=== PATIENT | male | born 1955 | race Caucasian/White ===

== ENCOUNTER → 2016-10-09 | Outpatient (CLI) | payer BC, OTHER ==
--- NOTE | 2016-10-10 06:13 | REP ---
Clinical: Pain and disability. Technique: AP, lateral, cone down views of the lumbosacral spine. Comparison: 01/17/2011. Findings: Alignment and lordosis maintained without evidence for acute fracture / compression injury or subluxation. Moderate to advanced multilevel degenerative disc osteophyte complexes are noted throughout the visualized lower thoracic and lumbosacral spine. Bridging osteophytes are identified at the T10 through T12 levels. Endplate sclerosis with spurring and disc space narrowing as well as hypertrophic facet changes noted throughout the lumbar spine. Impression: Moderate to advanced multilevel degenerative disc osteophyte complexes noted throughout the lower thoracic and lumbosacral spine progressive since prior examination. No acute fracture / compression injury or subluxation. Signed by Lew Cordoba MD 10/10/2016 06:04 A
== END ==
LOC: M ADAMS 14:30
PROVIDERS: ATTEND Family Medicine
DX: M79.652 Pain in left thigh (principal)

== ENCOUNTER → 2017-02-02 | Outpatient (REF) | payer BC, OTHER | LOC: M LAB REF 12:19 | PROVIDERS: ATTEND Physician Assistant | DX: N45.1 Epididymitis (principal) ==

== ENCOUNTER → 2017-02-04 | Outpatient (CLI) | payer BC, OTHER ==
--- NOTE | 2017-02-05 05:56 | REP ---
Clinical: Left-sided scrotal and testicular pain. Technique: Live scale and color Doppler evaluation using linear and curved array transducer with color Doppler evaluation. Findings: With the exception of cystic changes to the epididymi and mediastinum testis bilaterally including cysts measuring up to 7 mm in the left mediastinum testis and epididymal head cysts measuring up to 5 mm bilaterally, the testicles and epididymi are normal in contour, size, echogenicity and vascularity. There is no evidence for intratesticular/epididymal mass lesion, infectious/inflammatory process, or air torsion. No hydroceles are appreciated. Left-sided varicoceles and suspected spermatoceles measure up to 3.4 mm diameter. Right testicle measures 5.6 x 2.7 x 3.6 cm cm. Left testicle measures 5.5 x 2.3 x 3.0 cm cm. Impression: 1. Age-related cystic changes to the epididymi and mediastinum testes. 2. Suspected left-sided varicoceles and spermatoceles measuring up to approximately 3.5 mm diameter. 3. No evidence for orchitis or epididymitis. No hydrocele. Signed by Lew Cordoba MD 02/05/2017 05:47 A
== END ==
LOC: M RAD 10:13
PROVIDERS: ATTEND Physician Assistant
DX: N45.1 Epididymitis (principal)

== ENCOUNTER → 2017-06-16 | Outpatient (REF) | payer OTHER | LOC: M LAB REF 16:47 | PROVIDERS: ATTEND Nurse Practitioner Women's Health | DX: N50.819 Testicular pain, unspecified (principal) ==

== ENCOUNTER → 2017-06-17 | Outpatient (REF) | payer OTHER | LOC: M SMT 12:12 | PROVIDERS: ATTEND Nurse Practitioner Women's Health | DX: Z12.5 Encounter for screening for malignant neoplasm of prostate (principal) ==

== ENCOUNTER → 2017-09-25 | Outpatient (REF) | payer OTHER ==
[2017-09-25 13:39] LABS: BASO # 0.1 10^3/uL (0.0-0.2); BASO % 0.7 % (0.0-1.0); EOS # 0.2 10^3/uL (0.0-0.50); HEMATOCRIT 48.3 % (42.0-52.0); IMMATURE GRANULOCYTE % 0.4 % (0-0); LYMPH # 2.6 10^3/uL (1.5-4.5); LYMPH % 34.5 % (24.0-44.0); MEAN CORPUSCULAR HEMOGLOBIN 33.3 pg (27.0-33.0); MEAN CORPUSCULAR HGB CONC 35.2 g/dl (32.0-36.5); MEAN CORPUSCULAR VOLUME 94.7 fl (80.0-96.0); MONO # 0.6 10^3/uL (0.0-0.8); MONO % 7.5 % (0.0-5.0); NEUTROPHILS # 4.1 10^3/uL (1.8-7.7); NEUTROPHILS % 54.9 % (36.0-66.0); PLATELET COUNT, AUTOMATED 217 10^3/uL (150-450); RED CELL DISTRIBUTION WIDTH 11.9 % (11.5-14.5); WHITE BLOOD COUNT 7.4 10^3/uL (4.0-10.0)
[2017-09-25 14:00] LABS: ALBUMIN 4.2 GM/DL (3.2-5.2); ALBUMIN/GLOBULIN RATIO 1.35 (1.00-1.93); ALKALINE PHOSPHATASE 56 U/L (45-117); ALT/SGPT 64 U/L (12-78); ANION GAP 4 MEQ/L (8-16); AST/SGOT 31 U/L (7-37); BILIRUBIN,TOTAL 0.8 MG/DL (0.2-1.0); BLOOD UREA NITROGEN 16 MG/DL (7-18); CALCIUM LEVEL 9.1 MG/DL (8.8-10.2); CARBON DIOXIDE LEVEL 32 MEQ/L (21-32); CHLORIDE LEVEL 103 MEQ/L (98-107); CHOLESTEROL LEVEL 223 MG/DL (<200); CHOLESTEROL RISK RATIO 5.068 (<5); FREE T4 0.91 NG/DL (0.76-1.46); GLOMERULAR FILTRATION RATE > 60.0 (>49); GLUCOSE, FASTING 96 MG/DL (70-100); HDL CHOLESTEROL 44 MG/DL (>40); LDL CHOLESTEROL 135.8 MG/DL (<100); NON-HDL-C 179 MG/DL; POTASSIUM SERUM 4.9 MEQ/L (3.5-5.1); SODIUM LEVEL 139 MEQ/L (136-145); TOTAL PROTEIN 7.3 GM/DL (6.4-8.2); TRIGLYCERIDES LEVEL 216 MG/DL (<150)
== END ==
LOC: M SFHCADAM 12:32
DX: R53.82 Chronic fatigue, unspecified (principal); Z91.89 Other specified personal risk factors, not elsewhere classified

== ENCOUNTER → 2018-06-18 | Outpatient (REF) | payer OTHER ==
[2018-06-18 11:08] LABS: BASO % 0.6 % (0.0-1.0); EOS # 0.1 10^3/uL (0.0-0.50); EOS % 2.2 % (0.0-3.0); HEMATOCRIT 47.3 % (42.0-52.0); HEMOGLOBIN 16.1 g/dl (13.5-17.5); IMMATURE GRANULOCYTE % 0.6 % (0-3.0); LYMPH # 2.1 10^3/uL (1.5-4.5); LYMPH % 33.8 % (24.0-44.0); MEAN CORPUSCULAR HEMOGLOBIN 32.9 pg (27.0-33.0); MEAN CORPUSCULAR VOLUME 96.7 fl (80.0-96.0); MONO # 0.5 10^3/uL (0.0-0.8); MONO % 8.2 % (0.0-5.0); NEUTROPHILS # 3.5 10^3/uL (1.8-7.7); NEUTROPHILS % 54.6 % (36.0-66.0); PLATELET COUNT, AUTOMATED 184 10^3/uL (150-450); RED BLOOD COUNT 4.89 10^6/uL (4.30-6.10); RED CELL DISTRIBUTION WIDTH 12.1 % (11.5-14.5); WHITE BLOOD COUNT 6.3 10^3/uL (4.0-10.0)
[2018-06-18 11:25] LABS: ALBUMIN 3.9 GM/DL (3.2-5.2); ALKALINE PHOSPHATASE 59 U/L (45-117); ALT/SGPT 53 U/L (12-78); ANION GAP 7 MEQ/L (8-16); AST/SGOT 29 U/L (7-37); BILIRUBIN,TOTAL 0.8 MG/DL (0.2-1.0); BLOOD UREA NITROGEN 18 MG/DL (7-18); CALCIUM LEVEL 8.5 MG/DL (8.8-10.2); CARBON DIOXIDE LEVEL 29 MEQ/L (21-32); CHLORIDE LEVEL 103 MEQ/L (98-107); CHOLESTEROL LEVEL 199 MG/DL (<200); CHOLESTEROL RISK RATIO 4.853 (<5); CREATININE FOR GFR 1.01 MG/DL (0.70-1.30); FREE T4 0.95 NG/DL (0.76-1.46); GLOMERULAR FILTRATION RATE > 60.0 (>49); GLUCOSE, FASTING 102 MG/DL (70-100); HDL CHOLESTEROL 41 MG/DL (>40); LDL CHOLESTEROL 127 MG/DL (<100); NON-HDL-C 158 MG/DL; POTASSIUM SERUM 4.5 MEQ/L (3.5-5.1); SODIUM LEVEL 139 MEQ/L (136-145); TOTAL PROTEIN 6.9 GM/DL (6.4-8.2); TRIGLYCERIDES LEVEL 156 MG/DL (<150)
== END ==
LOC: M SFHCADAM 08:19
DX: R53.82 Chronic fatigue, unspecified (principal); E78.2 Mixed hyperlipidemia
CPT/HCPCS: 84443

== ENCOUNTER → 2018-10-01 | Outpatient (CLI) | payer BC, OTHER ==
--- NOTE | 2018-10-01 10:36 | REP ---
Clinical: right-sided pain on exertion. Technique: Real time couch scale and color Doppler evaluation using linear high frequency transducer. Comparison: 02/04/2017. Findings: The bilateral testicles are relatively normal in contour, size, echogenicity, and vascularity without evidence for intratesticular mass lesion, infectious/inflammatory process, or torsion. Incidental left intratesticular cyst measures 5 mm and appears simple. Bilateral epididymal head cysts are also identified measuring up to 5 mm on the right side and 3 mm on the left side. Small bilateral hydroceles are identified and nonspecific. In comparison with prior examination the above findings are essentially stable. No right-sided varicoceles are identified. Prominent left-sided vessels measure up to 3.3 mm on Valsalva and significantly less prominent than prior exam. A heterogeneous echogenic mass is identified in the right tejas scrotum superior to the testicle measuring 5.5 x 4.6 x 3.5 cm with a very minimal vasculature noted. This may represent mass versus loculated herniated fat. Impression: 1. Testicles and epididymi demonstrate relatively stable findings including epididymal head cysts and a left intratesticular cyst. Small hydroceles are nonspecific and likely incidental. 2. Previously identified left-sided varicoceles are significantly less prominent than prior examination with vessels measuring up to 3.3 mm on Valsalva. 3. There is a somewhat heterogeneous loculated hyperechoic area superior to the right testicle as described above which may represent loculated previously herniated fat and less likely true mass lesion. Correlation with physical examination and follow-up examination are warranted. Electronically Signed by Lew Cordoba MD 10/01/2018 10:27 A
== END ==
LOC: M SMT 08:23
PROVIDERS: ATTEND Nurse Practitioner Family
DX: N50.819 Testicular pain, unspecified (principal)

== ENCOUNTER → 2018-10-01 | Outpatient (REF) | payer OTHER ==
[2018-10-01 13:19] LABS: APPEARANCE, URINE CLEAR (CLEAR); BACTERIA, URINE AUTO NEGATIVE (NEGATIVE); BILIRUBIN, URINE AUTO NEGATIVE (NEGATIVE); BLOOD, URINE BLOOD NEGATIVE (NEGATIVE); COLOR, URINE YELLOW (YELLOW); GLUCOSE, URINE (UA) AUTO NEGATIVE (NEGATIVE); KETONE, URINE AUTO NEGATIVE (NEGATIVE); LEUKOCYTE ESTERASE, URINE AUTO NEGATIVE (NEGATIVE); MUCUS, URINE SMALL (NEGATIVE); NITRITE, URINE AUTO NEGATIVE (NEGATIVE); PROTEIN, URINE AUTO NEGATIVE (NEGATIVE); RBC, URINE AUTO 0 /HPF (0-3); SPECIFIC GRAVITY URINE AUTO 1.018 (1.002-1.035); SQUAMOUS EPITHELIAL CELL UR AU 0 /HPF (0-6); UROBILINOGEN, URINE AUTO 0.2 mg/dL (0.0-2.0); WBC, URINE AUTO 0 /HPF (0-3)
== END ==
LOC: M SMT 13:04
PROVIDERS: ATTEND Nurse Practitioner Family
DX: N50.819 Testicular pain, unspecified (principal)

== ENCOUNTER → 2018-10-07 | Outpatient (CLI) | payer BC, OTHER | LOC: M SMT 09:08 | PROVIDERS: ATTEND Nurse Practitioner Family | DX: Z12.5 Encounter for screening for malignant neoplasm of prostate (principal) | CPT/HCPCS: 36415; G0103 ==

== ENCOUNTER → 2018-10-15 | Outpatient (CLI) | payer BC, OTHER ==
[~2018-10-15] MED LIST: GASTROGRAFIN SOLUTION 30ML (Q9963) As Ordered ONE
--- NOTE | 2018-10-15 15:31 | REP ---
CT of the abdomen pelvis without IV contrast but with bowel contrast: Comparisons are the CT of the pelvis dated 01/02 2009 and scrotal ultrasound dated 10/01/2018. There is a fat-containing right inguinal hernia extending inferiorly to the scrotum maximally measuring 6.6 cm transverse diameter. This measured 3.[address]. There is no bowel within the hernia. The left inguinal canal is unremarkable. The visualized lung mulligan are unremarkable. The unenhanced hepatic parenchyma, gallbladder, pancreas, spleen, adrenals, abdominal aorta, bowel and mesentery are unremarkable. Pelvis: There is a tiny appendicolith. The appendix is otherwise unremarkable. The terminal ileum is unremarkable. There is sigmoid diverticulosis without diverticulitis. No adenopathy or ascites. The bladder is unremarkable. Impression: There is a fat-containing right inguinal hernia extending to the scroll measuring 6.6 cm in diameter. This has increased in size from the prior CT study. It is seen superiorly in the right tejas scrotum on the can scrotal ultrasound. There is no bowel within the hernia sac. Appendicolith. Appendix is otherwise unremarkable. Electronically Signed by Carlos Gavin MD 10/15/2018 03:21 P
== END ==
LOC: M RAD 12:45
PROVIDERS: ATTEND Nurse Practitioner Family
DX: K40.90 Unilateral inguinal hernia, without obstruction or gangrene, not specified as recurrent (principal)
CPT/HCPCS: 74177; Q9963

== ENCOUNTER 2018-12-06 09:39 | Day surgery (SDC) | payer BC, OTHER ==
[~2018-12-06] VITALS: Ht 180.3 cm; Wt 113.4 kg
[~2018-12-06 09:39] MED LIST changes: -GASTROGRAFIN SOLUTION 30ML (Q9963) As Ordered ONE; +LR 1,000 ML IV ONE; +MAGN250T7 PO; +REST0.05 OU; +TOLT2CAP4 PO
[2018-12-06] MEDS ORDERED: LIDOCAINE 2% INJ 100 MG/5 ML SDV (FOR ANES.) As Ordered ONE (10:17)
[2018-12-06] MEDS ORDERED: ONDANSETRON 4MG/2ML VIAL (J2405) As Ordered ONE (10:17)
[2018-12-06] MEDS ORDERED: dexameTHASONE 4 MG/ML 1ML VIAL (J1100) As Ordered ONE (10:17)
[2018-12-06] MEDS ORDERED: PROPOFOL 200 MG/20 ML VIAL As Ordered ONE (10:17)
[2018-12-06] MEDS ORDERED: ROCURONIUM BROMIDE 50 MG/5 ML VIAL As Ordered ONE ×2 (10:17→13:17)
[2018-12-06] MEDS ORDERED: MIDAZOLAM INJ 2 MG/2 ML VIAL (J2250) As Ordered ONE (10:18)
[2018-12-06] MEDS ORDERED: fentaNYL 250 MCG/5 ML INJECTION (J3010) As Ordered ONE (10:18)
[2018-12-06] MEDS ORDERED: LIDOCAINE 1% SDV INJ 30 ML VIAL As Ordered ONE (12:27)
[2018-12-06] MEDS ORDERED: BUPIVACAINE HCL 0.25% 30 ML VIAL As Ordered ONE (12:27)
[2018-12-06] MEDS ORDERED: GLYCOPYRROLATE INJ 0.2 MG/ML 2 ML VIAL As Ordered ONE (13:04)
[2018-12-06] MEDS ORDERED: SUGAMMADEX SODIUM 500 MG/5 ML VIAL (BRIDION) As Ordered ONE (13:12)
[2018-12-06] MEDS ORDERED: KETOROLAC 60 MG/2 ML VIAL (J1885) As Ordered ONE (13:12)
[2018-12-06] MEDS ORDERED: PERCOCET 5MG/325MG TAB PO PRN (15:15)
[2018-12-06] MEDS ORDERED: LR 1,000 ML IV SCH (15:15)
[2018-12-06] MEDS ORDERED: METOCLOPRAMIDE INJ 10MG/2ML VIAL (J2765) IV PRN (15:15)
[2018-12-06] MEDS ORDERED: KETOROLAC 30 MG/ML VIAL (J1885) IV PRN (15:15)
[2018-12-06] MEDS ORDERED: ONDANSETRON 4MG/2ML VIAL (J2405) IV PRN ×2 (15:15)
[2018-12-06] MEDS ORDERED: fentaNYL 100 MCG/2 ML INJECTION (J3010) IV PRN (15:15)
[2018-12-06] MEDS ORDERED: NORCO, ANEXSIA 5/325MG TABLET (HYDROcodone/ACETAMINOPHEN) PO PRN ×2 (15:15)
[2018-12-06] MEDS ORDERED: MEPERIDINE INJ 25 MG/ML VIAL (J2175) IV PRN (15:15)
--- NOTE | 2018-12-06 15:58 | ROOPDOC ---
[facility] Report Of Operation Report of Operation DATE OF PROCEDURE: 12/06/18 PREPROCEDURE DIAGNOSES: Right Inguinal Hernia. POSTPROCEDURE DIAGNOSES: Right (large) indirect inguinal hernia, small direct inguinal hernia. PROCEDURE: Robotic Assisted Laparoscopic Right Ingunal Hernia Repair (AGUSTIN) progrip mesh. SURGEON: Thomas Haji MD GUIDE SETTER: Annabelle Cabral NP ANESTHESIA: General Anesthesia. ESTIMATED BLOOD LOSS: Approximately 20 mL. COMPLICATIONS: none. REMARKS: bulky cord lipoma and preperitoneal tissue including that around the medial umbilical ligament protruding through the internal inguinal ring accompanying the hernia, large redundant hernia sac PROCEDURE NOTE: . DESCRIPTION OF PROCEDURE: Patient received 2 g of Ancef IV preoperatively for wound prophylaxis. Patient was brought to the operating room, placed supine on the operating table. Compression boots placed in both lower extremities for DVT prophylaxis. After adequate general anesthesia started, he was placed on a lithotomy position. A hong catheter placed without difficulty. His abdomen and groin/pelvic area then prepped and draped in the usual sterile fashion. After a surgical timeout we began our surgery. Entry to the abdomen done through a small incision above the umbilical skin cleft. A Veress needle is inserted on a controlled fashion. CO2 insufflation started to pressure 15 mmHg. Using the same incision a 5 mm Visiport was then placed under direct vision of laparoscope. The insertion site was inspected for injury and none was found. Patient was then positioned on a Trendelenburg position with the symptomatic (left) side tilted upwards for adequate view of the hernia defect. 2 working ports placed to the right and left of the umbilicus along the same line. The da Rosalee robot to our was then positioned in between the patient's legs and the trochars docked onto the robot. I then unscrubbed and took control of the camera and the laparoscopic instruments at the surgeon's console. A Cadiere forceps with bipolar cautery on arm 2 and A ady-cut laparoscopic scissor with unipolar cautery in arm 1 was used. Operative Findings: No peritoneal defect was found on the right side. On the left side, there is a peritoneal defect going into the internal ring at the indirect hernia space which initially was containing a piece of omentum which easily reduced on positioning the patient at trendelenburg position. The peritoneum was opened up about 3 cm above the superior edge of the fascial defect of the inguinal hernia starting at the medial umbilical ligament going in an arc-like fashion laterally towards the level of the anterior superior iliac spine. This was then dissected mostly bluntly away from the abdominal wall. On approaching the inguinal hernia defect the hernia sac was pulled back into the preperitoneal space and carefully dissected off the testicular vessels and vas deferens. He has a large and redundant inguinal hernia sac which was fully reduced back into the abdomen. Both these structures were promptly identified and from the hernia sac. A small cord lipoma was found and dissected free from the rest of the structures. After freeing up the hernia sac we continued dissecting it off inferiorly to from the vas deferens and testicular vessels. The preperitoneal space was dissected medially to expose the pubic tubercle up towards the symphysis pubis. The remaining areolar fibers were bluntly dissected away from the abdominal wall to create space for the mesh. After fully dissecting the preperitoneal space, we checked for adequate hemostasis. I chose a Parietex Pro Animal Assistant self fixating mesh. I had my lens assistant trim the lateral edges of the mesh to approximate the patient's body habitus. This was folded with the center of the mesh marked for positioning. This was then delivered intra-abdominally through one of the trochars. A controlled fashion this was positioned into the preperitoneal space with the medial side towards the pubic tubercle and the previously marked center of the mesh abutting the inferior epigastric vessels. The mesh was then carefully infolded and positioned in place with adequate overlap around the internal ring to cover the hernia defect. The mesh has adequate coverage for the direct hernia spaces as well. This was carefully pressed onto the abdominal wall and made sure that it was flattened up. After careful placement of the mesh, the peritoneal opening was then closed with a running suture of 2-0V LOC suture. As the hernia sac was long and redundant I incorporated the hernia sac into the closure of the peritoneum. I then surveyed the abdomen and pelvis for any signs of injury. Once satisfied I scrubbed back in. The instruments were removed. The abdomen was deflated. All ports were removed. The skin incisions were closed with 4-0 Monocryl in subcuticular fashion. The incisions were covered with Dermabond. The port sites were again infiltrated with local anesthesia. An ilioinguinal nerve block was also performed. Patient was promptly awakened, extubated and brought to the recovery room stable Count of sponges and instruments were verified correct. THOMAS HAJI MD Dec 06, 2018 15:58
--- NOTE | 2018-12-06 16:43 | ECGEPIP ---
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 LA conduction disturbance? First-degree AV block (measured SC interval is incorrect) Early transition/slightly prominent R waves in V3. No prior tracing for comparison. Electronically Signed On 12-06-2018 16:42:53 EDT by Gregor Felder
[2018-12-06 17:46] VITALS: BP 136/80
== END 2018-12-06 17:55 | disposition home or self-care (01) ==
LOC: M SDC 09:39
PROVIDERS: ATTEND Surgery
DX: K40.90 Unilateral inguinal hernia, without obstruction or gangrene, not specified as recurrent (principal); G47.30 Sleep apnea, unspecified; Z79.899 Other long term (current) drug therapy
CPT/HCPCS: 49650; 88304; 93005; C1781; J0690; J1100; J1885; J2250; J2405; J3010

== ENCOUNTER → 2018-12-22 | Outpatient (CLI) | payer BC, OTHER ==
[~2018-12-22] MED LIST changes: -LR 1,000 ML IV ONE
--- NOTE | 2018-12-22 12:32 | REP ---
BILATERAL HIPS: AP and frogleg views of the bilateral hips are performed. There is no acute fracture or dislocation. The is mild joint space narrowing and subchondral sclerosis bilaterally. Two tiny calcific densities at the superolateral margin of the right acetabulum may represent cartilaginous calcifications or accessory ossicles. There is no intrinsic osseous pathology seen. There is mild bilateral acetabular spurring. IMPRESSION: Mild bilateral degenerative changes. Electronically Signed by Carlos Live MD 12/22/2018 04:34 P
== END ==
LOC: M ADAMS 09:01
PROVIDERS: ATTEND Family Medicine
DX: M25.852 Other specified joint disorders, left hip (principal)

== ENCOUNTER → 2019-07-20 | Outpatient (REF) | payer OTHER ==
[2019-07-20 13:02] LABS: CHOLESTEROL RISK RATIO 4.804 (<5)
== END ==
LOC: M SFHCADAM 08:05
PROVIDERS: ATTEND Family Medicine
DX: Z91.89 Other specified personal risk factors, not elsewhere classified (principal)

== ENCOUNTER → 2019-07-22 | Outpatient (CLI) | payer BC, OTHER ==
--- NOTE | 2019-07-22 12:21 | REP ---
Chest x-ray: Two views. History: Chest pressure . Comparison study: January 17, 2011 . Findings: The lungs are well inflated and free of infiltrate. The pleural angles are sharp. The heart size is normal. Pulmonary vasculature is not increased. No significant bony abnormality is seen. There are degenerative disc changes in the thoracic spine. Impression: Negative chest x-ray. Electronically Signed by Jeronimo Latham MD 07/22/2019 12:13 P
== END ==
LOC: M ADAMS 09:45
PROVIDERS: ATTEND Family Medicine
DX: R07.89 Other chest pain (principal)

== ENCOUNTER → 2019-10-17 | Outpatient (REF) | LOC: M LAB 13:55 | PROVIDERS: ATTEND Nurse Practitioner Adult Health | DX: Z02.1 Encounter for pre-employment examination (principal) ==

== ENCOUNTER → 2020-09-19 | Outpatient (REF) | payer OTHER ==
[2020-09-19 13:59] LABS: CHOLESTEROL RISK RATIO 3.062 (<5)
== END ==
LOC: M SFHCADAM 08:05
PROVIDERS: ATTEND Family Medicine
DX: E78.2 Mixed hyperlipidemia (principal)

== ENCOUNTER → 2020-10-22 | Outpatient (REF) | payer OTHER | LOC: M SFHCADAM 08:58 | PROVIDERS: ATTEND Family Medicine | DX: M79.10 Myalgia, unspecified site (principal) ==

== ENCOUNTER → 2020-11-07 | Outpatient (REF) | payer OTHER ==
[2020-11-07 14:10] LABS: HEMOGLOBIN A1c 5.4 %
[2020-11-07 14:13] LABS: ALT/SGPT 39 U/L (12-78); BILIRUBIN,TOTAL 0.9 MG/DL (0.2-1.0); BLOOD UREA NITROGEN 20 MG/DL (7-18); CALCIUM LEVEL 9.4 MG/DL (8.8-10.2); CARBON DIOXIDE LEVEL 27 MEQ/L (21-32); CHLORIDE LEVEL 103 MEQ/L (98-107); CPK CREATINE PHOSPHOKINASE 188 U/L (39-308); CREATININE FOR GFR 1.04 MG/DL (0.70-1.30); GLOMERULAR FILTRATION RATE > 60.0 (>49); GLUCOSE, FASTING 100 MG/DL (70-100); LDH LACTATE DEHYDROGENASE 165 U/L (87-241); POTASSIUM SERUM 4.7 MEQ/L (3.5-5.1); SODIUM LEVEL 137 MEQ/L (136-145)
[2020-11-07 14:18] LABS: VITAMIN B12 LEVEL 628 PG/ML
[2020-11-07 14:19] LABS: FOLATE 10.2 NG/ML
== END ==
LOC: M SFHCADAM 09:28
PROVIDERS: ATTEND Family Medicine
DX: R74.8 Abnormal levels of other serum enzymes (principal); M79.10 Myalgia, unspecified site; R20.2 Paresthesia of skin

== ENCOUNTER → 2021-11-21 | Outpatient (CLI) | payer MEDICARE, BC, OTHER ==
[~2021-11-21] MED LIST changes: +GASTROGRAFIN SOLUTION 30ML (Q9963) As Ordered ONE; +ISOVUE-370 76% 100ML VIAL As Ordered ONE
== END ==
LOC: M RAD 13:40
PROVIDERS: ATTEND Internal Medicine
DX: R10.32 Left lower quadrant pain (principal)
CPT/HCPCS: 74178; Q9963; Q9967

== ENCOUNTER → 2022-08-14 | Outpatient (CLI) | payer MEDICARE, BC, OTHER ==
[~2022-08-14] MED LIST changes: -GASTROGRAFIN SOLUTION 30ML (Q9963) As Ordered ONE; -ISOVUE-370 76% 100ML VIAL As Ordered ONE
== END ==
LOC: M RAD 13:54
PROVIDERS: ATTEND Internal Medicine
DX: N50.812 Left testicular pain (principal); R22.9 Localized swelling, mass and lump, unspecified

== ENCOUNTER → 2022-12-31 | Outpatient (REF) | payer MEDICARE, BC, OTHER | LOC: M LAB REF 11:13 | PROVIDERS: ATTEND Internal Medicine Gastroenterology | DX: R19.7 Diarrhea, unspecified (principal) ==

== ENCOUNTER 2023-05-20 06:48 | Day surgery (SDC) | payer MEDICARE, BC, OTHER ==
[~2023-05-20] VITALS: Ht 180.3 cm; Wt 110.7 kg
[~2023-05-20 06:48] MED LIST changes: +NS 1,000 ML IV ONE; +PREG150C2 PO; +SIMV40TA20 PO
[2023-05-20] MEDS ORDERED: propofoL 200 MG/20 ML VIAL As Ordered ONE (07:41)
[2023-05-20] MEDS ORDERED: LIDOCAINE 2% 100MG/5ML SDV (FOR ANES.) As Ordered ONE (07:41)
[2023-05-20 08:33] VITALS: TEMP 96.6
[2023-05-20 09:02] VITALS: BP 124/78; O2SAT 97
== END 2023-05-20 09:14 | disposition home or self-care (01) ==
LOC: M OPP 06:48
PROVIDERS: ATTEND Internal Medicine Gastroenterology
DX: K64.0 First degree hemorrhoids (principal); K57.30 Diverticulosis of large intestine without perforation or abscess without bleeding; E78.5 Hyperlipidemia, unspecified; M19.90 Unspecified osteoarthritis, unspecified site; G47.30 Sleep apnea, unspecified; Z79.899 Other long term (current) drug therapy

== ENCOUNTER → 2023-10-12 | Outpatient (REF) | payer MEDICARE, BC, OTHER ==
[~2023-10-12] MED LIST changes: -NS 1,000 ML IV ONE
== END ==
LOC: M LAB REF 11:32
PROVIDERS: ATTEND Internal Medicine
DX: R19.7 Diarrhea, unspecified (principal)

== ENCOUNTER → 2023-11-03 | Outpatient (REF) | payer MEDICARE, BC, OTHER | LOC: M LAB REF 13:00 | PROVIDERS: ATTEND Internal Medicine | DX: R19.7 Diarrhea, unspecified (principal) ==

== ENCOUNTER → 2023-12-30 | Outpatient (CLI) | payer MEDICARE, BC, OTHER | LOC: M RAD 12:31 | PROVIDERS: ATTEND Internal Medicine | DX: K86.81 Exocrine pancreatic insufficiency (principal) ==